=== PATIENT | male | born 1995 | race American Indian/Alaskan Native ===

== ENCOUNTER 2022-05-08 10:40 | Emergency (ER) | payer SELFPAY ==
[2022-05-08] MEDS ORDERED: KETOROLAC 60 MG/2 ML INJ IM ONE (11:23)
[2022-05-08] MEDS ORDERED: predniSONE 20 MG TAB PO ONE (11:23)
[2022-05-08] MEDS ORDERED: CYCLOBENZAPRINE 10 MG TAB PO ONE (11:23)
--- NOTE | 2022-05-08 11:44 | XRay Report ---
RIGHT SHOULDER 4 VIEWS INDICATION: shoulder pain. COMPARISON: None. IMPRESSION: Slightly limited exam with nonstandard imaging due to poor patient mobility. On the tra nsscapular view, there appears to be posterior subluxation or near dislocation at the glenohumeral rene int. There are subtle calcific densities overlying the inferior recess of the right shoulder joint on the frontal view suggesting intra-articular bony fragments or calcified foreign bodies. No large dis placed fracture is detected. No significant degenerative changes are identified. Given these findings , further evaluation with CT or MRI is recommended. Signer Name: Joshua Villarreal Jr, MD Signed: 05/08/2022 11:39 AM Workstation Name: [id number]
--- NOTE | 2022-05-08 11:51 | Emergency Department Report ---
Blank Doc - Documentation Documentation: 26-year-old female that presents with right shoulder pain with possible disloc ation. Unknown injury or trauma. 1- This is a initial triage assessment/medical screening only. Full assessment and work-up will be completed once the patient is in proper hospital gown, ED bed and in a private room setting. This initial assessment/diagnostic orders/clinical plan/ treatment(s) is/are subject to change based on pt's health status, clinical progression and re-assessment by fellow clinical providers in the ED. Further treatment and workup at subsequent clinical providers discretion. Patient/guardians urged not to elope from ED as their condition may be serious if not clinically assessed and managed. 2-xrays 3-to MAIN ED The patient was evaluated in the emergency department for symptoms described in the history of present illness. He/she was evaluated in the context of the global COVID-19 pandemic, which necessitated consideration that the patient might be at risk for infection with the virus that causes COVID-19. Institutional protocols and algorithms that pertain to the evaluation of patients at risk for COVID-19 are in a state of rapid change based on information released by regulatory bodies including the CDC and federal and state organizations. These policies and algorithms were followed during the patient's care in the emergency department. Please note that these policies, procedures and recommendations changed on a rapid basis.
[2022-05-08] MEDS ORDERED: propofoL 200 MG/20 ML VIAL IV ONE (15:18)
--- NOTE | 2022-05-08 17:38 | Emergency Department Report ---
Upper Extremity - HPI Chief Complaint: Extremity Injury, Upper Stated Complaint: RT ARM PAIN Time Seen by Provider: 05/08/22 10:57 Upper Extremity: Right Shoulder Occurred When: 3 Days Mechanism: Other (Spontaneous/while asleep) Severity: moderate Symptoms: Yes Pain with Movement, Yes Deformity, Yes Limited Range of Movement ED Review of Systems ROS: Stated complaint: RT ARM PAIN Other details as noted in HPI Comment: All other systems reviewed and negative Constitutional: denies: chills, fever Respiratory: denies: cough, shortness of breath, wheezing Cardiovascular: denies: chest pain, palpitations Endocrine: no symptoms reported Gastrointestinal: denies: abdominal pain, nausea, diarrhea Musculoskeletal: arthralgia Skin: as per HPI Neurological: denies: headache, weakness, paresthesias ED Past Medical Hx - Past Medical History Previous Medical History?: No - Surgical History Past Surgical History?: No - Social History Smoking Status: Never Smoker Upper Extremity Exam - Exam General: Vital signs noted. No distress. Alert and acting appropriately. Head and Torso: No HEENT Abnormality, No Neck Tenderness, No Chest/Lungs Abnormality, No Abdominal Tenderness, No Back Tenderness Shoulder Exam: Yes Shoulder Deformity, No Shoulder Tenderness, No Normal Range of Motion in Shoulder Arm Exam: No Arm/Humerus Tenderness, No Arm Deformity Elbow: No Elbow Tenderness, No Normal Range of Motion in Elbow, No Elbow Deformity Forearm: No Forearm Tenderness, No Forearm Deformity, No Pain with Pronation, No Pain with Supination Wrist: No Wrist Tenderness, No Normal ROM in Wrist, No Wrist Deformity, No Snuffbox Tenderness, No Pain with Axial Thumb Compression Hand: No Hand Tenderness, No Hand Deformity, No Digit Tenderness, No Normal ROM in Digit(s), No Digit(s) Deformity, No Tendon Dysfunction ED Course Vital Signs 05/08/22 05/08/22 05/08/22 10:53 11:27 16:10 Temperature 97.8 F Pulse Rate 91 H 65 Respiratory 17 16 16 Rate Blood Pressure 133/93 O2 Sat by Pulse 100 100 Oximetry 05/08/22 05/08/22 05/08/22 16:15 16:30 16:45 Temperature Pulse Rate 62 76 71 Respiratory 18 16 17 Rate Blood Pressure 151/104 139/100 132/87 O2 Sat by Pulse 100 100 100 Oximetry 05/08/22 05/08/22 05/08/22 17:00 17:15 17:30 Temperature Pulse Rate 71 68 79 Respiratory 12 18 19 Rate Blood Pressure 139/101 146/91 141/94 O2 Sat by Pulse 100 100 100 Oximetry - Moderate Sedation Indications: fracture/dislocation redu ASA Class: I Mallampati Airway Score: 1 Preparation: hide and skin classer applied, pulse oximeter, supplemental O2 applied, reversal agents at bedside, suction/airway equipment at bedside, IV secured IV Propofol Dose (mgs): 80 Complications: none Patient Tolerated Procedure: well Additional Comments: Total procedure time approximately 15 minutes. - Orthopedic Joint Reduction Joint #1 Consent Obtained: written consent Time Out Performed: Yes Side: right Joint Reduction Location: shoulder Analgesia: moderate sedation Shoulder Technique Used (if applicable): traction/counter-traction Technique Used: traction/counter-traction Post-Reduction Neuro Exam: intact Post-Reduction Vascular Exam: intact Post Reduction X-Ray Obtained: Yes Post Reduction X-Ray Results: reduced Splint Applied: No (Placed in sling) Patient Tolerated Procedure: well ED Medical Decision Making - Medical Decision Making Patient is a 26-year-old male presenting with complaint of right shoulder pain that he noticed on Sunday morning when awakening. Reports significant pain when attempting to range the shoulder since that time. X-ray revealed possible slight dislocation. On physical exam there is mild contour deformity to the right shoulder. Reduction was attempted under procedural sedation. Repeat x- ray report details a persistent posterior dislocation. Suspect possible subluxation due to joint laxity. Will place in sling and referred to Ortho. Critical care attestation.: If time is entered above; I have spent that time in minutes in the direct care of this critically ill patient, excluding procedure time. ED Disposition Clinical Impression: Spontaneous dislocation of shoulder Disposition: 01 HOME / SELF CARE / HOMELESS Is pt being admited?: No Condition: Stable Instructions: Posterior Shoulder Instability Additional Instructions: Please follow-up with Dr. Cardoso's office. You may schedule an appointment by calling [phone]. In the meantime please keep your sling on for comfort Time of Disposition: 18:29
--- NOTE | 2022-05-08 18:19 | XRay Report ---
RIGHT SHOULDER 2 VIEWS INDICATION / CLINICAL INFORMATION: Post reduction. COMPARISON: Earlier the same day. FINDINGS: BONES / JOINT(S): Posterior dislocation remains. Suspect reverse Hill-Sachs deformity. SOFT TISSUES: Overlying soft tissue swelling. ADDITIONAL FINDINGS: None. Signer Name: Brendon Wagner MD Signed: 05/08/2022 6:14 PM Workstation Name: [id number]
[2022-05-08 19:11] VITALS: BP 132/92
== END 2022-05-08 21:25 | disposition home or self-care (01) ==
LOC: EDSEX → ED 10:40
DX: S43.004A Unspecified dislocation of right shoulder joint, initial encounter (principal); X58.XXXA Exposure to other specified factors, initial encounter; Y93.89 Activity, other specified; Y92.89 Other specified places as the place of occurrence of the external cause; Y99.8 Other external cause status
CPT/HCPCS: 23650; 73020; 73030; 96372; 99283; J1885; J2704

== ENCOUNTER 2022-05-12 17:50 | Emergency (ER) | payer SELFPAY ==
[2022-05-12 17:59] VITALS: BP 126/81
--- NOTE | 2022-05-12 20:12 | Emergency Department Report ---
ED General Adult HPI - General Chief complaint: Shoulder Injury Stated complaint: SHOULDER PAIN Source: patient Mode of arrival: Ambulatory Limitations: No Limitations - History of Present Illness Initial comments: 26-year-old male reports to the ER with complaints of right shoulder pain, patient was recently here due to left shoulder dislocation. Patient reports he does not have anything for pain and states that the sling does not help much with the pain. Patient has range of motion in his right shoulder. Patient reports pain is 1 out of 10 at baseline. Patient also reports possible exposure to mold. With no acute symptoms such as chest pain, shortness of breath, weakness, dizziness, nausea, vomiting, diarrhea. No other acute symptoms - Related Data Previous Rx's Medication Instructions Recorded Last Taken Type Acetaminophen/Codeine [Tylenol 1 tab PO Q6H PRN 3 Days #10 tab 05/12/22 Unknown Rx /Codeine # 3 tab] Ibuprofen [Motrin] 800 mg PO Q8HR PRN 7 Days #21 05/12/22 Unknown Rx tablet Allergies Allergy/AdvReac Type Severity Reaction Status Date / Time No Known Allergies Allergy Verified 05/12/22 18:00 ED Review of Systems ROS: Stated complaint: SHOULDER PAIN Other details as noted in HPI Constitutional: denies: chills, fever Eyes: denies: eye pain, eye discharge, vision change ENT: denies: ear pain, throat pain Respiratory: denies: cough, shortness of breath, wheezing Cardiovascular: denies: chest pain, palpitations Endocrine: no symptoms reported Gastrointestinal: denies: abdominal pain, nausea, diarrhea Genitourinary: denies: urgency, dysuria Musculoskeletal: arthralgia. denies: back pain, joint swelling Skin: denies: rash, lesions Neurological: denies: headache, weakness, paresthesias Psychiatric: denies: anxiety, depression Hematological/Lymphatic: denies: easy bleeding, easy bruising ED Past Medical Hx - Past Medical History Previous Medical History?: Yes (Right shoulder) - Social History Smoking Status: Never Smoker - Medications Home Medications: Home Medications Medication Instructions Recorded Confirmed Last Taken Type Acetaminophen/Codeine [Tylenol 1 tab PO Q6H PRN 3 Days #10 tab 05/12/22 Unknown Rx /Codeine # 3 tab] Ibuprofen [Motrin] 800 mg PO Q8HR PRN 7 Days #21 05/12/22 Unknown Rx tablet ED Physical Exam - General Limitations: No Limitations General appearance: alert, in no apparent distress - Head Head exam: Present: atraumatic, normocephalic - Eye Eye exam: Present: normal appearance - ENT ENT exam: Present: mucous membranes moist - Neck Neck exam: Present: normal inspection - Respiratory Respiratory exam: Present: normal lung sounds bilaterally. Absent: respiratory distress - Cardiovascular Cardiovascular Exam: Present: regular rate, normal rhythm. Absent: systolic murmur, diastolic murmur, rubs, gallop - GI/Abdominal GI/Abdominal exam: Present: soft, normal bowel sounds - Rectal Rectal exam: Present: deferred - Extremities Exam Extremities exam: Present: normal inspection - Expanded Upper Extremity Exam Right Shoulder Exam: Present: tenderness, deformity. Absent: swelling - Back Exam Back exam: Present: normal inspection - Neurological Exam Neurological exam: Present: alert, oriented X3 - Psychiatric Psychiatric exam: Present: normal affect, normal mood - Skin Skin exam: Present: warm, dry, intact, normal color. Absent: rash ED Course Vital Signs 05/12/22 17:54 Temperature 98.1 F Pulse Rate 92 H Respiratory 18 Rate Blood Pressure 126/81 [Left] O2 Sat by Pulse 99 Oximetry ED Medical Decision Making - Medical Decision Making 26-year-old male reports to the ER with complaints of right shoulder pain, patient was recently here due to left shoulder dislocation. Patient reports he does not have anything for pain and states that the sling does not help much with the pain. Patient has range of motion in his right shoulder. Patient reports pain is 1 out of 10 at baseline. Patient also reports possible exposure to mold. With no acute symptoms such as chest pain, shortness of breath, weakness, dizziness, nausea, vomiting, diarrhea. No other acute symptoms Patient will be sent home with oral pain medicine. Patient will follow-up with his orthopedic has been referred since his last visit. Patient agrees with plan of care and verbalized understanding. Pulses are intact in right extremity. Vital Signs 05/12/22 17:54 Temperature 98.1 F Pulse Rate 92 H Respiratory 18 Rate Blood Pressure 126/81 [Left] O2 Sat by Pulse 99 Oximetry Critical care attestation.: If time is entered above; I have spent that time in minutes in the direct care of this critically ill patient, excluding procedure time. ED Disposition Clinical Impression: Mold exposure Right shoulder pain Qualifiers: Chronicity: acute Qualified Code(s): M25.511 - Pain in right shoulder Disposition: 01 HOME / SELF CARE / HOMELESS Is pt being admited?: No Condition: Stable Instructions: Shoulder Pain, Musculoskeletal Pain Prescriptions: Ibuprofen [Motrin] 800 mg PO Q8HR PRN 7 Days #21 tablet PRN Reason: Pain , Severe (7-10) Acetaminophen/Codeine [Tylenol /Codeine # 3 tab] 1 tab PO Q6H PRN 3 Days #10 tab PRN Reason: Pain , Severe (7-10) Time of Disposition: 20:22
[2022-05-12] MEDS ORDERED: HYDROcodone/ACETAMINOPHEN 5-325 MG TAB PO ONE (20:18)
[2022-05-12] MEDS ORDERED: IBUPROFEN 800 MG TAB PO ONE (20:18)
== END 2022-05-12 21:19 | disposition home or self-care (01) ==
LOC: ED 17:50
DX: M25.511 Pain in right shoulder (principal); Z77.120 Contact with and (suspected) exposure to mold (toxic); Z79.899 Other long term (current) drug therapy
CPT/HCPCS: 99282